=== PATIENT | female | born 1950 | race Caucasian/White ===

== ENCOUNTER → 2017-05-22 17:00 | Outpatient (CLI) | payer OTHER, SELFPAY ==
[2017-05-29 12:24] LABS: HPV Reflexed? NOT INDICATED
== END ==
PROVIDERS: Visit Provider Obstetrics & Gynecology
DX: Z12.4 Encounter for screening for malignant neoplasm of cervix (principal)
CPT/HCPCS: 88175; G0145

== ENCOUNTER 2021-11-18 10:12 | Day surgery (SDC) | payer OTHER, SELFPAY ==
--- NOTE | 2021-11-17 08:59 | EKG12_ITS ---
Test Reason : PREOP Blood Pressure : / mmHG Vent. Rate : 071 BPM Atrial Rate : 071 BPM P-R Int : 140 ms QRS Dur : 082 ms QT Int : 400 ms P-R-T Axes : -16 004 012 degrees QTc Int : 434 ms Normal sinus rhythm Nonspecific T wave abnormality Abnormal ECG Confirmed by STARLA DELGADILLO, TRAVIS ([id number]), metropolitan editor BUTCH SANON ([id number]) on 11/17/2021 1:29:30 PM Referred By: Albina Jose Confirmed By:TRAVIS CHA MD
[2021-11-17 09:55] LABS: Hematocrit 38.4 % (37-47); Hemoglobin 12.7 g/dL (12.0-15.0); Mean Corp Hgb Conc 33.1 g/dL (32-36); Mean Corpuscular Hgb 31.2 pg (27.0-32.0); Mean Corpuscular Volume 94.3 fL (81-99); Mean Platelet Vol. 11.1 fl (6.2-12.0); Platelet Count 204 K/mm3 (150-450); RBC Distribution Width CV 12.9 % (11.6-14.6); RBC Distribution Width SD 44.6 fl (35.1-43.9); Red Blood Count 4.07 M/mm3 (4.2-5.4); White Blood Count 6.6 K/mm3 (4.4-11.0)
[2021-11-18] VITALS (7 sets, daily range): BP systolic 152–180; BP diastolic 69–87; PULSE 68–81; RESP 14–20; TEMP 36.1–37.3; O2SAT 97–100; BMI 20.2
--- NOTE | 2021-11-18 | EMB_PTH ---
PATIENT: LORI WASHBURN LOC: [facility] [place] U#:[id number] AGE/SX: 71/F ROOM: RE11/18/[address]: Dr. Albina Jose DO : 1950 BED: DIS: 11/18/2021 SPEC #: [id number] RECD: 11/18/21 14:56 STATUS: ABHIJIT LIVE #: [id number] JOEY: 11/18/21 00:[address]: Albina Jose DEPT: SURGICAL PATHOLOGY RECD BY: Isaak Barron ENTERED: 11/21/21 08:35 SP TYPE: ENDOM BX/C OTHR DR: Dr. Ford Posada MD Tissues: Endometrium, NOS Procedures: Surgery Specimen Level IV HEADER OPERATION: Hysteroscopy, D & C PRE-OP DIAGNOSIS: Postmenopausal bleeding TISSUE SUBMITTED: Endometrial curettings MICROSCOPIC DIAGNOSIS Endometrium, curettings: Scant inactive endometrium with extensive stromal and focal glandular breakdown. Rare strips of benign endocervical mucosa. See comment. AM:kaiden 11/22/2021 AM:kaiden 11/24/2021 COMMENT Clinical correlation is suggested. MICROSCOPIC DESCRIPTION Slides are reviewed. GROSS DESCRIPTION Received in fixative is one container labeled with the patient's name and designated endometrial curettings. The specimen consists of multiple fragments of hemorrhagic soft tissue mixed with mucoid tissue that in aggregate measure 3 x 2.5 x 0.3 cm. The specimen is totally submitted in one cassette. / SJ:kaiden 11/21/2021 TC:5 CPT: 82808
--- NOTE | 2021-11-18 | EMB_PTH ---
PATIENT: LORI WASHBURN LOC: [facility] – [place] U#:[id number] AGE/SX: 71/F ROOM: RE11/18/[address]: Dr. Albina Jose DO : 1950 BED: DIS: 11/18/2021 SPEC #: [id number] RECD: 11/18/21 14:56 STATUS: ABHIJIT LIVE #: [id number] JOEY: 11/18/21 00:[address]: Albina Jose DEPT: SURGICAL PATHOLOGY RECD BY: Isaak Barron ENTERED: 11/21/21 08:35 SP TYPE: ENDOM BX/C OTHR DR: Dr. Ford Posada MD Tissues: Endometrium, NOS Procedures: Surgery Specimen Level IV HEADER OPERATION: Hysteroscopy, D & C PRE-OP DIAGNOSIS: Postmenopausal bleeding TISSUE SUBMITTED: Endometrial curettings MICROSCOPIC DIAGNOSIS Endometrium, curettings: Scant inactive endometrium with extensive stromal and focal glandular breakdown. Rare strips of benign endometrial mucosa. See comment. AM:kaiden 11/22/2021 COMMENT Clinical correlation is suggested. MICROSCOPIC DESCRIPTION Slides are reviewed. GROSS DESCRIPTION Received in fixative is one container labeled with the patient's name and designated endometrial curettings. The specimen consists of multiple fragments of hemorrhagic soft tissue mixed with mucoid tissue that in aggregate measure 3 x 2.5 x 0.3 cm. The specimen is totally submitted in one cassette. / SJ:kaiden 11/21/2021 TC:5 CPT: 99397
[2021-11-18] MEDS: Lactated Ringers 1,000 ML 15 ML IV (10:20)
--- NOTE | 2021-11-18 13:46 | DCINST_ITS ---
Discharge Instructions Diet Discharge Diet: No restrictions Activity Discharge Activity: May Drive (once your > 24 hours out from surgery) and May Shower (once you are more than 24 hours out from surgery) May resume sexual activity in: 1-2 weeks (no tampons, no intercourse, no hot tubs, baths or pools) Weight Bearing Status: Weight bearing as tolerated Lifting Restrictions: none Dressing / Incision Call your doctor if you observe: Fever of 101 or Higher, Coldness, Increased Pain, Numbness or Tingling, Change in Color, Inability to urinate, Inability to have a bowel movement, Using more than 1 pad per hour, Shortness of breath, Dizziness, Fainting spells, Swelling in the ankles, Chest pain, Increased palpitations (irregular heartbeat), Calf discomfort and Uncontrolled pain Cleanse incision/area with: Soap & Water Follow Up Care Please Follow Up With: Albina Jose DO When: 1-2 weeks Test Results: Test results from this visit will be discussed in further detail at your follow- up appointment, if applicable. Discharge Plan Admission Primary Reason for Your Visit: surgery Attending Provider: Albina Jose Primary Care Provider: Ford Posada Discharge Orders/Prescriptions Prescriptions: Continued alprazolam 1 mg tablet 1 - 2 mg PO QHS Label Comments: TAKE 1 TO 2 TABLETS BY MOUTH AT BEDTIME NEEDED liothyronine [Cytomel] 5 mcg Tablet 5 mcg PO DAILY Vitamin C 100 mg Tablet 100 mg PO DAILY omeprazole 20 mg Capsule,Delayed Release(Dr/Ec) 20 mg PO DAILY vitamin B complex Capsule 1 cap PO DAILY Prempro 0.45-1.5 mg Tablet 1 tab PO DAILY bupropion HCl 150 mg tablet extended release 24 hr 1 tab PO DAILY Label Comments: TAKE 1 TABLET BY MOUTH ONCE DAILY cholecalciferol (vitamin D3) [Vitamin D3] 50 mcg (2,000 unit) Capsule 50 mcg PO DAILY levothyroxine 50 mcg Capsule 50 mcg PO DAILY Discontinued misoprostol 200 mcg tablet 2 tab vaginal X1 Label Comments: PLACE 2 TABLETS VAGINALLY AT BEDTIME BEFORE THE PROCEDURE AND 2 TABLETS THE MORNING OF Other Ambulatory Orders: 12 Lead EKG (Routine) Timeframe: [id number] Location: None Selected Ordered By: Dr. Albina Jose Referrals / Follow Up: Ford Posada MD [Primary Care Provider] - Disposition Disposition (needs filled in before D/C Order can be placed): Home, Self Care
--- NOTE | 2021-11-18 14:15 | OP.PCM_ITS ---
Problems Associated Problem List Diagnoses (1) PMB (postmenopausal bleeding): Report of Operation Date of Procedure: 11/18/21 Pre-Operative Diagnosis: PMB Post-Operative Diagnosis: PMB Surgery/Procedure Performed:: Hysteroscopy D&C Description of Surgical Findings:: Normal appearing uterine cavity and bilateral tubal ostia visualized. Atrophic appearing endometrium. No uterine or cervical polyps. No fibroids Surgeon: Albina Jose eyeglass frame truer: Gilles Hill MS3 Type of Anesthesia: MAC Special Medications: None Specimen's removed: Endometrial curettings Drains: None Estimated Blood Loss (mL): < 20 Fluids Replaced: 150 cc fluid deficit Description of Procedure: The patient was taken to the operating room where MAC anesthesia was induced and found to be adequate. She was prepped and draped in the dorsal lithotomy position using yellowfin stirrups. A weighted speculum was placed in the vagina to expose the cervix. A single-tooth tenaculum was placed on the anterior lip of the cervix. The cervix was serially dilated. The Symphion hysteroscope was inserted into the uterus and the uterus was distended using normal saline as distention media. The uterine cavity was normal-appearing. Bilateral tubal ostia were visualized. The endometrium was atrophic appearing. No polyps were noted within the uterine cavity. The hysteroscope was slowly removed through the cervical canal and no polyps were noted. The hysteroscope was removed. A sharp curettage was performed for a small amount of tissue. Endometrial curettings were sent to pathology for review. Bleeding was hemostatic. All instruments were removed from the vagina. Vaginal sweep was performed. Instrument and sponge counts were correct. The patient was taken to recovery in stable condition. Gilles Hill was present for the entire case and observed. Grafts/Implants Used: None Procedure Start Time: 14:03 Procedure Stop Time: 14:13 Complications None Admit VTE Documentation VTE Present on Admission: No VTE Mechan Device Prophylaxis: SCD's
== END 2021-11-18 15:20 | disposition home or self-care (01) ==
LOC: SDC 10:12 → AC 10:13
PROVIDERS: PCP Family Medicine; Referring Provider Obstetrics & Gynecology; Visit Provider Obstetrics & Gynecology
PROC: 0UB98ZZ Excision of Uterus, Via Natural or Artificial Opening Endoscopic (ICD-10-PCS; CPT 58558; principal; 2021-11-18 13:00)
DX: N95.0 Postmenopausal bleeding (principal); F41.9 Anxiety disorder, unspecified; K21.9 Gastro-esophageal reflux disease without esophagitis; E03.9 Hypothyroidism, unspecified; Z79.899 Other long term (current) drug therapy
CPT/HCPCS: 58558; 00952; 36415; 85027; 86850; 86900; 86901; 88305; 93005; J7120; J2405